=== PATIENT | male | born 1965 | race Caucasian/White ===

== ENCOUNTER → 2017-01-16 | Outpatient (CLI) | payer BC, OTHER ==
[~2017-01-16] VITALS: Ht 176.5 cm; Wt 90.3 kg
[~2017-01-16] MED LIST: ALIGN4 MG PO; ALLEGRA ALLERG180 MG PO; AUGMENTIN875 MG PO; CIPRO250 MG PO; CIPRO500 MG PO; COLACE100 MG PO; CYCLOBENZAPRINE 10 M; DILAUDID2 MG PO; FLAGYL500 MG PO; FLONASE ALLERG9.9 ML BOTH NARES; FLUTICASONE PRO16 GM; Flagyl PO; HYDROCODON-ACE1 EAC8; LEVSIN0.125 MG PO; Levaquin PO; Norco 7.5/325 PO; PEPCID40 MG PO; PERCOCET 10/1 TABLET PO; PERCOCET 5/31 TABLET PO; PERCOCET 7.5-31 EACH PO; PERCOCET 7.51 TABLET PO; PREDNISONE20 MG PO; PROBIOTIC1 EAC1 PO; PROTONIX; PROTONIX40 MG PO; VIBRAMYCIN100 MG PO; ZANAFLEX4 MG PO; ZOFRAN4 MG PO
== END | disposition home or self-care (01) ==
LOC: AMB 11:49
PROC: 0D758ZZ Dilation of Esophagus, Via Natural or Artificial Opening Endoscopic (ICD-10-PCS; principal; 2017-01-16)
DX: K22.2 Esophageal obstruction (principal); K21.0 Gastro-esophageal reflux disease with esophagitis; Z80.42 Family history of malignant neoplasm of prostate; Z80.0 Family history of malignant neoplasm of digestive organs; Z88.2 Allergy status to sulfonamides
CPT/HCPCS: J2250; J3010

== ENCOUNTER 2018-02-17 23:47 | Emergency (ER) | payer BC ==
[~2018-02-17] VITALS: Ht 175.3 cm; Wt 92.3 kg
[2018-02-18 00:08] LABS: HEMATOCRIT 40.5 % (38.0-50.0); HEMOGLOBIN 13.8 G/DL (12.5-16.6); MCH 31.7 PG (29.0-34.0); MCHC 34.1 G/DL (30.0-36.0); MCV 93.1 FL (86-99); PLATELET COUNT 167 K/uL (156-360); RBC DIS.WIDTH-SD 42.2 % (39-53); RED BLOOD COUNT 4.35 M/uL (4.00-5.50); WHITE BLOOD COUNT 9.6 K/uL (4.1-10.2)
[2018-02-18 00:17] LABS: ALBUMIN 4.4 g/dL (3.2-4.8)
[2018-02-18 00:18] LABS: CHLORIDE 102 mEq/L (99-109); POTASSIUM 3.9 mEq/L (3.7-5.4); SODIUM 138 mEq/L (136-147)
[2018-02-18 00:20] LABS: GLUCOSE 119 mg/dL (70-99); TOTAL PROTEIN 7.1 g/dL (6.4-8.3)
[2018-02-18 00:23] LABS: ALKALINE PHOSPHATASE 91 IU/L (3-129)
[2018-02-18 00:24] LABS: CREATININE 0.9 mg/dL (0.6-1.3); GFR ESTIMATE (CALCULATED) > 59 mL/min/ (58.99-99999)
[2018-02-18 00:25] LABS: AST (GOT) 19 IU/L (2-34); UREA NITROGEN (BUN) 11 mg/dL (9-23)
[2018-02-18 00:27] LABS: ALT (GPT) 21 IU/L (3-49)
[2018-02-18] MEDS ORDERED: XARELTO1 EACH PO (01:32)
[2018-02-18 02:07] VITALS: BP 103/66
== END 2018-02-18 02:10 | disposition home or self-care (01) ==
LOC: EME 23:47
DX: I82.432 Acute embolism and thrombosis of left popliteal vein (principal); I82.4Z2 Acute embolism and thrombosis of unspecified deep veins of left distal lower extremity; Z85.828 Personal history of other malignant neoplasm of skin; Z88.2 Allergy status to sulfonamides
CPT/HCPCS: 80053; 85027; 93971; 99281; 99284

== ENCOUNTER 2018-02-19 05:34 | Emergency (ER) | payer BC ==
[~2018-02-19] VITALS: Ht 175.3 cm; Wt 88.0 kg
[~2018-02-19 05:34] MED LIST changes: +XARELTO1 EACH PO
[2018-02-19 06:32] LABS: BASOPHIL (%) 0.5 % (0-1); EOSINOPHIL (%) 4.3 % (0-5); EOSINOPHIL COUNT 0.3 K/uL (0-0.3); HEMATOCRIT 38.7 % (38.0-50.0); HEMOGLOBIN 13.2 G/DL (12.5-16.6); IMMATURE GRANULOCYTE (%) 0.8 % (0.0-0.7); LYMPHOCYTE (%) 9.6 % (15-42); LYMPHOCYTE COUNT 0.8 K/uL (1.0-2.8); MCHC 34.1 G/DL (30.0-36.0); MCV 93.9 FL (86-99); MONOCYTE (%) 7.9 % (3-12); MONOCYTE COUNT 0.6 K/uL (0-0.8); NEUTROPHIL (%) 76.9 % (45-76); NEUTROPHIL COUNT 6.2 K/uL (1.8-6.4); PLATELET COUNT 166 K/uL (156-360); RBC DIS.WIDTH-CV 12.2 % (11.8-14.6); RBC DIS.WIDTH-SD 42.3 % (39-53); RED BLOOD COUNT 4.12 M/uL (4.00-5.50)
[2018-02-19 06:50] LABS: CHLORIDE 102 mEq/L (99-109); POTASSIUM 4.3 mEq/L (3.7-5.4); SODIUM 139 mEq/L (136-147)
[2018-02-19 06:51] LABS: GLUCOSE 118 mg/dL (70-99)
[2018-02-19 06:55] LABS: CREATININE 0.8 mg/dL (0.6-1.3); GFR ESTIMATE (CALCULATED) > 59 mL/min/ (58.99-99999)
[2018-02-19 06:56] LABS: UREA NITROGEN (BUN) 16 mg/dL (9-23)
[2018-02-19 06:58] LABS: CREATINE KINASE 637 IU/L (1-294); TOTAL CK 637 IU/L (1-294)
[2018-02-19 06:59] LABS: TROP-I INTERPRETATION NEGATIVE; TROPONIN-I < 0.01 ng/mL (0.0-0.30)
[2018-02-19 07:04] LABS: CK-MB 2.1 ng/mL (0.0-4.9); CKMB RELATIVE INDEX 0.3 (0.0-3.9)
[2018-02-19 11:40] VITALS: BP 113/64
== END 2018-02-19 11:43 | disposition home or self-care (01) ==
LOC: EME → EDBD 05:34 → EME 05:34
PROVIDERS: Emergency Medicine
DX: I82.432 Acute embolism and thrombosis of left popliteal vein (principal); I82.442 Acute embolism and thrombosis of left tibial vein; I82.4Z2 Acute embolism and thrombosis of unspecified deep veins of left distal lower extremity; R61 Generalized hyperhidrosis; R11.0 Nausea; Z87.442 Personal history of urinary calculi; Z85.828 Personal history of other malignant neoplasm of skin; Z88.2 Allergy status to sulfonamides
CPT/HCPCS: 80048; 82550; 82553; 83605; 84484; 85025; 93971; 99281; 99283; J2270